=== PATIENT | male | born 1995 | race Caucasian/White ===

== ENCOUNTER 2016-11-15 07:16 | Emergency (ER) | payer BC ==
--- NOTE | 2016-11-15 09:12 | RAD ---
Indication: Right testicular pain. Real-time sonography of the scrotum was performed. The right testis measures 5.2 x 2.4 x 3.1 cm. Normal flow is noted in the right testis. No intratesticular masses are noted. Small hydrocele is noted. The epididymis measures 7 x 9 mm. Tiny epididymal cysts are noted in the body and tail of the epididymis on the right. There may be some mild hyperemia in the right epididymis. The left testis measures 5.0 x 2.4 x 3.3 cm. No intratesticular masses are noted. The left epididymis measures 10 x 11 mm. Normal flow is noted. Small left hydrocele is noted. Epididymal body cyst measuring 8 x 6 x 8 mm is noted. IMPRESSION: No intratesticular masses are noted. There may be some mild hyperemia of the right epididymis. The possibility of early epididymitis on the right should BE considered. No intratesticular masses are noted.
[2016-11-15] MEDS ORDERED: cefTRIAXone VIAL(*) 250 MG VIAL IM ONE (09:28)
[2016-11-15] MEDS ORDERED: Lidocaine 1%* 5 ML VIAL ONE (10:13)
[2016-11-15 10:31] VITALS: BP 124/66
--- NOTE | 2016-11-15 17:43 | ED ---
Richard Saxena Salem, scribed for Juan Millan MD on 11/15/16 at 0828 . GI/ HPI - HPI Summary HPI Summary: Patient is a 20 y/o male who presents to the ED with testicular pain since yesterday. He reports leaking and sudden onset. While pt was playing hockey yesterday, but he does not think it is related. - History of Current Complaint Chief Complaint: EDGeneral Time Seen by Provider: 11/15/16 07:55 Stated Complaint: testicular PAIN Hx Obtained From: Patient Onset/Duration: Started Days Ago - 1 day. Severity: Moderate Pain Intensity: 3 Associated Signs and Symptoms: Positive: Negative Aggravating Factor(s): Nothing Alleviating Factor(s): Nothing - Allergy/Home Medications Allergies/Adverse Reactions: Allergies Allergy/AdvReac Type Severity Reaction Status Date / Time No Known Allergies Allergy Verified 11/15/16 07:23 PMH/Surg Hx/FS Hx/Imm Hx Previously Healthy: Yes Infectious Disease History: No Infectious Disease History: Reports: Traveled Outside the [place] in Last 30 Days - [place] - Family History Known Family History: Negative: Cardiac Disease, Diabetes - Social History Alcohol Use: Occasionally Hx Substance Use: No Hx Tobacco Use: No Review of Systems Negative: Fever Positive: other - Testicular pain. All Other Systems Reviewed And Are Negative: Yes Physical Exam Triage Information Reviewed: Yes Vital Signs On Initial Exam: Initial Vitals Temp Pulse Resp BP Pulse Ox 98.2 F 74 18 116/66 100 11/15/16 07:20 11/15/16 07:20 11/15/16 07:20 11/15/16 07:20 11/15/16 07:20 Vital Signs Reviewed: Yes Appearance: Positive: Well-Appearing, No Pain Distress Skin: Positive: Warm, Skin Color Reflects Adequate Perfusion, Dry Head/Face: Positive: Normal Head/Face Inspection Eyes: Positive: Normal Neck: Positive: Supple, Nontender Respiratory/Lung Sounds: Positive: Clear to Auscultation, Breath Sounds Present Cardiovascular: Positive: RRR Abdomen Description: Positive: Nontender, Soft Bowel Sounds: Positive: Present Musculoskeletal: Positive: Normal Neurological: Positive: Normal Psychiatric: Positive: Normal, Affect/Mood Appropriate Diagnostics - Vital Signs Vital Signs Temp Pulse Resp BP Pulse Ox 11/15/16 07:20 98.2 F 74 18 116/66 100 - Laboratory Lab Statement: Any lab studies that have been ordered have been reviewed, and results considered in the medical decision making process. - Ultrasound No standard instances Ultrasound Interpretation Completed By: Radiologist - US TESTICULAR: IMPRESSION : No intratesticular masses are noted. There may be some mild hyperemia of the right epididymis. The possibility of early epididymitis on the right should BE considered. No intratesticular masses are noted. Re-Evaluation - Re-Evaluation First Eval Re-Evaluation Time: 09:33 Comment: Discussed plan to DC with pt. He is agreable. GIGU Course/Dx - Course Course Of Treatment: The radiologist was suspicious for epididymitis on U/S and he will be treated accordingly. - Diagnoses Provider Diagnoses: Epididymitis Discharge - Discharge Plan Condition: Stable Disposition: HOME Prescriptions: DOXYcycline CAP(*) [DOXYcycline 100MG CAP(*)] 100 mg PO BID #20 cap HYDROcodone/ACETAMIN 5-325 MG* [Goehner 5-325 TAB*] 1 tab PO Q6H PRN #20 tab MDD 4 PRN Reason: Pain Patient Education Materials: Doxycycline (By mouth), Hydrocodone/Acetaminophen (By mouth), Epididymitis (ED) Referrals: [facility] MARLENI Chawla [Primary Care Provider] - Additional Instructions: Follow up with PCP. The documentation as recorded by the Richard guerrero Salem accurately reflects the service I personally performed and the decisions made by me, Juan Millan MD.
== END 2016-11-15 10:28 | disposition home or self-care (01) ==
LOC: EDSEX → ED 07:16
DX: N50.819 Testicular pain, unspecified (principal); N45.1 Epididymitis
CPT/HCPCS: 76870; 99282; J0696